=== PATIENT | female | born 2000 | race Caucasian/White ===

== ENCOUNTER 2022-05-07 07:15 | Outpatient (CLI) | payer OTHER, BC, SELFPAY ==
--- NOTE | 2022-05-07 07:15 | MR_ITS ---
[address] [address] Phone:?[phone] Fax:?[phone] Referring Physician Information: Emmanuel Merrill [address] [facility] [address] Phone:?[phone] Fax:?[phone] Patient:?Pia Chacon D.O.B:?2000 Sex:?Female Phone:?[phone] [facility] MRN:?[id number] Exam Date:?05/07/2022 ? EXAM: MRI EXAMINATION OF THE LEFT ELBOW CLINICAL INFORMATION: Left elbow pain. No history of surgery to this area. Suspected mechanical block from loose body. TECHNICAL INFORMATION: Coronal T1 and STIR. Axial, sagittal and coronal PD and T2-weighted images acquired. INTERPRETATION: Bones, joint and osteochondral surfaces: Marked marrow edema signal associated with residua of obliquely oriented intra-articular fracture involving the radial head. Maximal step-off at the level of the articulating surface is measuring 2-3 mm. No other evidence for an occult fracture or osseous contusion. There is a small elbow joint effusion. There is no evidence for a loose body. No other abnormal marrow edema pattern identified. Tendons: The biceps, triceps and brachialis tendon insertions are all intact. The common flexor origin at the medial humeral epicondyle is intact. The common extensor origin at the lateral humeral epicondyle is intact without tear or significant tendinopathy. Ligaments: The ulnar collateral ligament is intact without evidence of acute sprain or tear. The radial collateral and lateral ulnar collateral ligaments appear grossly intact. Nerves: The ulnar nerve appears unremarkable coursing past the elbow and through the cubital tunnel. CONCLUSION: 1. There is a small elbow joint effusion. There is no evidence for a loose body. 2. Marked marrow edema signal associated with obliquely oriented intra-articular fracture of the radial head. Maximal step-off of approximately 2 to 3 mm at the level of the articulating surface. 3. Unremarkable and intact appearance of the tendons about the elbow. 4. Intact appearance of the elbow ligaments. KES Electronically signed on 05/07/2022 2:25:00 PM by Ravin Valdovinos M.D.
== END 2022-05-07 07:16 | disposition home or self-care (01) ==
LOC: MRI 07:16
PROVIDERS: PCP Family Medicine; Visit Provider Physician Assistant Surgical
DX: M25.522 Pain in left elbow (principal); M25.422 Effusion, left elbow
CPT/HCPCS: 73221

== ENCOUNTER 2022-05-07 13:30 | Outpatient (RCR) | payer OTHER, BC, SELFPAY ==
--- NOTE | 2022-04-05 18:08 | OT.OPOE ---
OT Outpatient Ortho Eval OT Outpatient Ortho Eval Start: 04/05/22 12:20 Freq: Status: Active Protocol: Document 04/05/22 12:21 LCN (Rec: 04/05/22 12:33 LCN [id number]) E-signed By Chely Ochoa, OTR/L, CLT OT OP Ortho Eval Details Type Type Eval Complexity Low Insurance Information Insurance Information Workman's Comp Insurance Information Comments 4 visits pre-approved. Outpatient History/Precautions Current Condition/Medical Diagnosis Referring Provider Marjorie Hudson PA-C Treatment Diagnosis L radial head fracture. 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 Medical/Functional History Medical History Reviewed Yes Prior Level of Function/Mobility Pt works fulltime at 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 Attends school for 3rd college degree in biology at [employer]. Social History Critical Job Demands Static Sitting,Prolonged Standing Oriented Mental Status No Concerns Ortho Subjective Subjective Subjective Pia Clark is an active 21 y/o female who sustained L radial head fracture of L UE after mechanical fall on slick surface while working at [employer]. She was in a sling x 7-10 days and now has stiffness at elbow and forearm planes. Pt is able to hopper operator a coffee cup at midline, is trying to use L hand more with 2 handed chores. Unable to wash/comb her hair, chop vegetables with L hand. Starting to wean off of shoulder sling, but wears at work as a reminder. Pain Assessment Pain Present Pain Present Pain Reported Location L elbow Description Sharp,Dull, Achy,Throbbing, With Movement,Heaviness Intensity 8 Goniometric Comments Goniometric Comments Goniometric Comments EL FL to 110 of 14o and lacking 45 degrees of L NIKA. SUpination 15of 90. Pronation to 75 of 90, painful at biceps, readisal head and down forearm for these limitations . All shoulder, wrist and digit planes WNL. Pulp Grinder And Blender is 62# R and 24# L ( 4/10 pain, momentary). Green pinch is 18# R and L> 3 pt pinch is 20.5.# R and 15# L ( pressure at radial head, lacking pronation positioning) Edema pocketing at radial head ,medial and lateral epicondyle. THickness of fascia, banding at L biceps insert, triceps and proximal forearm. Edema Assessment Description Subjective Edema Description Tightness Additional Information Comments Pt guided to wear sling for 7- 10 days/can start to wean now. OT Objective Data Hand Hand Dominance Right Upper Extremity Special Tests Wrist Durkan's Test Negative Left Tenosynovitis Wrist Finklestein Test Negative Left Median Nerve-Carpal Tunnel Wrist Phalen Test Negative Left OT Problems Problems Problems Decreased Strength,Decreased Range of Motion,Decreased Fine Motor,Lifting,Gripping Other Problems Opening Containers,Dressing, Computer,Fasteners Patient Potential Excellent Assessment Assessment Assessment With pt's L radial head fracture, she is still having ?difficulty with edema, pain, ROM and strength loss of L hand/wrist/elbow. She would benefit from skilled OT to address these areas. In 8 weeks, pt will demonstrate:? 1) Decreased pn to <2/10 80% of the time with sustained gripping, carrying groceries, reading books and weeding. 2) I HEP for stretching, gradual strengthening and self mgmt strategies. 3) improved L hopper operator strength to 15# and pinch to 10# with L thumb pain < 1/10. 4)??Pt to be fit with functional bracing (for CMC, wrist,) and use adaptive strategies to protect joint integrity to support less pain with ADL. Occupational Therapy Treatment Plan - OP Potential Rehabilitation Potential Excellent Set Goals Goals Set with Patient Yes Goals Goals In 8 weeks, Josey will demonstrate:? 1) Decreased pn to <2/10 80% of the time with sustained gripping, carrying groceries, reading books and vacuuming/ sweeping. 2) I HEP for stretching, gradual strengthening and self mgmt strategies. 3) improved L hopper operator strength to 45# be able to apply weightbearing into B hands for planks, with L forearm pain < 1/10. 4)??Pt to be fit with functional bracing (for PROM of supination end range,) and use adaptive strategies to protect joint integrity to support less pain with ADL. Target Date 07/05/21 Progress set Treatment Plan Treatment Plan Evaluation,Edema Control, Iontophoresis,Joint Mobilization,Manual Therapy, Paraffin Bath,Splinting, Ultrasound,Therapeutic Exercise,Self-Care/Home Management,Education Expected Frequency 1-2x Week Expected Duration 6-8 Weeks Certification Certification I Certify That: Therapy Services Provided, Therapy Plan Established, Therapy Plan Reviewed
--- NOTE | 2022-05-07 16:38 | OT.OPODN ---
OT Outpatient Ortho Daily Note OT Outpatient Ortho Daily Note Start: 04/05/22 12:20 Freq: Status: Active Protocol: Document 05/07/22 16:23 LCN (Rec: 05/07/22 16:37 LCN [id number]) E-signed By Chely Ochoa OTR/Robert, CLT Type of Note Type of Note Type of Note Daily Note,Discharge Note,Note To MD Visit Number 7 Insurance Authorized Visits 4 Insurance Information Insurance Information Workman's Comp Insurance Information Comments 4 visits pre-approved. Outpatient History/Precautions Current Condition/Medical Diagnosis Referring Provider Marjorie Hudson PA-C Treatment Diagnosis L radial head fracture. 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 Attends school for 3rd college degree in Pops at [employer]. Social History Critical Job Demands Static Sitting,Prolonged Standing Oriented Mental Status No Concerns Ortho Subjective Subjective Subjective Pt is feeling much better with elbow ROM and is tolerating upper body strengthening program well at light band level. ABle to modify yoga poses to elbow plank and side planks. Has limitation of last 5 degrees of terminal elbow extension, springy end feel, but can get full ROM during closed chain weightbearing/ wrist s in fisted power position rather than palms flat. Pain Assessment Pain Present Pain Present Pain Reported Location L elbow Intensity 0 OT OP Daily Ortho Note/Assessment Self-Care/Home Management Self-Care/Home Management Minutes ( 0 minutes) Self-Care/Home Management Comments . Therapeutic Exercise Therapeutic Exercise Minutes (minutes) 1 Therapeutic Exercise Comments Added green band for self progression of HEP. SHown how to modify plank at fisted position to palms flat progression as she is ready. Applied to knee based plank, and side plank/hip lift positions. Ultrasound Ultrasound Location & Joint Position Open , L elbow, radial head, triceps insert. Medial EL to biceps Ultrasound Comments as needed to support reduction of edema for tissue healing and improved tissue as needed to support reduction of edema for tissue healing and improved tissue mobility Manual Therapy Manual Therapy Minutes (minutes) 24 Manual Therapy Comments OTR continues IASTM with Graston #6 to mobilize soft tissue surrounding joint capsule,?ligament structures and muscle groups to support freedom of movement and healing of structures at radial head, CFT/mm bellies, medial brachialis/ brachioradialis and triceps insert. OTR performs pin and stretch with c grasp, I/O membrane mobilization during short arc movements of supination Goniometric Comments Goniometric Comments Goniometric Comments 05/07/22 Elbow flexion to 142 of 145. NIKA to lacking 3 degrees) Zipper Trimmer Hand improved to 65# R and 62# L. Green pinch to 16# B. 3 pt pinch is 15# L, 17# L. ( pressure 1/10 during pronation). 04/30/22--Improved to 140 of 145 EL FL and -7 NIKA. Supination to 88 degrees AAROM after IASTM, during hammer turns. 04/23/22-- Improved to 138 of 145 EL FL and -3 NIAK. SUpination to 82 degrees after IASTM. 04/16/22-- IMproved to 142 AAROM EL FL and 5 degrees elbow hyperextension PROM and supination to 70 of 90 after session. 04/13/22-- IMproved to -5 NIKA and AAAROM to 140 of 145 EL FL . Supination to 50 of 90. 04/07/22-- EL FL improved to 125 and NIKA to lacking 7 degrees. EL FL to 110 of 14o and lacking 45 degrees of L NIKA. SUpination 15of 90. Pronation to 75 of 90, painful at biceps, readisal head and down forearm for these limitations . All shoulder, wrist and digit planes WNL. Zipper Trimmer Hand is 62# R and 24# L ( 4/10 pain, momentary). Green pinch is 18# R and L> 3 pt pinch is 20.5.# R and 15# L ( pressure at radial head, lacking pronation positioning) Edema pocketing at radial head ,medial and lateral epicondyle. THickness of fascia, banding at L biceps insert, triceps and proximal forearm. Hand Pinch/Zipper Trimmer Hand Strength Comments Comments HEP-- 04/13/22-- 5#, UE traction w NIKA stretch. Trunk Rotation while walking. 04/07/22-- NIKA taco stretch, self pin and stretch - End ROM holds for NIKA on table top, SROM EL FL in supination, pronation and neutral, and end ROM holds for supination/pronatio Edema Assessment Description Subjective Edema Description Tightness Additional Information Comments Pt guided to wear sling for 7- 10 days/can start to wean now. OT Objective Data Hand Hand Dominance Right Upper Extremity Special Tests Wrist Durkan's Test Negative Left Tenosynovitis Wrist Finklestein Test Negative Left Median Nerve-Carpal Tunnel Wrist Phalen Test Negative Left OT Problems Problems Problems Decreased Strength,Decreased Range of Motion,Decreased Fine Motor,Lifting,Gripping Other Problems Opening Containers,Dressing, Computer,Fasteners Patient Potential Excellent Assessment Assessment Assessment Pt has met all goals and is ready for d/c from OT. With pt's L radial head fracture, she is still having ? difficulty with edema, pain, ROM and strength loss of L hand/wrist/elbow. She would benefit from skilled OT to address these areas. In 8 weeks, pt will demonstrate:? 1) Decreased pn to <2/10 80% of the time with sustained gripping, carrying groceries, reading books and weeding. 2) I HEP for stretching, gradual strengthening and self mgmt strategies. 3) improved L it desktop support specialist strength to 15# and pinch to 10# with L thumb pain < 1/10. 4)??Pt to be fit with functional bracing (for CMC, wrist,) and use adaptive strategies to protect joint integrity to support less pain with ADL. Occupational Therapy Treatment Plan - OP Potential Rehabilitation Potential Excellent Set Goals Goals Set with Patient Yes Goals Goals In 8 weeks, Josey will demonstrate:? 1) Decreased pn to <2/10 80% of the time with sustained gripping, carrying groceries, reading books and vacuuming/ sweeping. 2) I HEP for stretching, gradual strengthening and self mgmt strategies. 3) improved L it desktop support specialist strength to 45# be able to apply weightbearing into B hands for planks, with L forearm pain < 1/10. 4)??Pt to be fit with functional bracing (for PROM of supination end range,) and use adaptive strategies to protect joint integrity to support less pain with ADL. Target Date 07/05/21 Progress set Treatment Plan Treatment Plan Evaluation,Edema Control, Iontophoresis,Joint Mobilization,Manual Therapy, Paraffin Bath,Splinting, Ultrasound,Therapeutic Exercise,Self-Care/Home Management,Education Expected Frequency 1-2x Week Expected Duration 6-8 Weeks Comment Summary Add self mobilzation of STM, supination AAROM/hammer turns? , OT Treatment Minutes Treatment Minutes Untimed Treatment Minutes 0 Timed Treatment Minutes 25 Total Treatment Minutes 25 Occupational Therapy Billing Units Billing Units Manual Therapy 2 Self Care/Home Management 0 Ultrasound 0 Certification Certification I Certify That: Therapy Services Provided, Therapy Plan Established, Therapy Plan Reviewed Discharge Note Discharge Note Discharge Summary After 7 visits of skilled OT Josey demonstrates:? 1) Decreased pn to <2/10 80% of the time with sustained gripping, carrying groceries, reading books and vacuuming/ sweeping. (Goal exceeded) 2) I HEP for stretching, gradual strengthening and self mgmt strategies. (GOAL MET ) 3) improved L it desktop support specialist strength to 45# be able to apply weightbearing into B hands for planks, with L forearm pain < 1/10. (GOAL MET-- Elbow flexion to 142 of 145. NIKA to lacking 3 degrees) Zipper Trimmer Hand improved to 65# R and 62# L. Green pinch to 16# B. 3 pt pinch is 15# L, 17# L. ( pressure 1/10 during pronation ). 4)??Pt to be fit with functional bracing (for PROM of supination end range,) and use adaptive strategies to protect joint integrity to support less pain with ADL. ( no extra bracing needed). Date of First Visit for Therapy 04/05/22 Date of Last Visit for Therapy 05/07/22 Initial Primary Functional Limitations/ Pia Clark is an active Concerns 21 y/o female who sustained L radial head fracture of L UE after mechanical fall on slick surface while working at [employer]. She was in a sling x 7-10 days and now has stiffness at elbow and forearm planes. Pt is able to it desktop support specialist a coffee cup at midline, is trying to use L hand more with 2 handed chores. Unable to wash/comb her hair, chop vegetables with L hand. Starting to wean off of shoulder sling, but wears at work as a reminder. Initial Pain Level 6 Pain Level at Discharge 0 Interventions Provided During Treatment Heat,Joint Mobilization,Manual Therapy,Therapeutic Exercise, Ultrasound,Self Care/Home Management Recommendations/Reason for Discharge Met All Therapy Goals,Progress Cont w/HEP
== END 2022-05-07 17:20 | disposition home or self-care (01) ==
PROVIDERS: PCP Family Medicine; Visit Provider Physician Assistant Surgical
DX: S52.122D Displaced fracture of head of left radius, subsequent encounter for closed fracture with routine healing (principal); Z51.89 Encounter for other specified aftercare
CPT/HCPCS: 97035; 97110; 97140; 97165; 97535; X5282